=== PATIENT | male | born 1980 | race Caucasian/White ===

== ENCOUNTER 2025-09-06 11:39 | Emergency (ER) | payer BC ==
[~2025-09-06] VITALS: Ht 170.2 cm; Wt 81.6 kg
[2025-09-06 11:49] VITALS: BP 123/82; TEMP 97.7
[2025-09-06] MEDS ORDERED: IBUP-1957 PO (12:24)
[2025-09-06 12:34] VITALS: O2SAT 98
[2025-09-06] MEDS ORDERED: IBUP-1955 PO (12:40)
== END 2025-09-06 12:45 | disposition home or self-care (01) ==
LOC: ER 11:55
DX: M94.0 Chondrocostal junction syndrome [Tietze] (principal)
CPT/HCPCS: 71045-TC